=== PATIENT | male | born 1970 | race Caucasian/White ===

== ENCOUNTER 2016-12-02 08:12 | Emergency (ER) | payer BC ==
[2016-12-02 08:17] VITALS: BP 139/78; PULSE 96; RESP 20; TEMP 99.8
[2016-12-02] MEDS ORDERED: HYDROcodone/APAP 10-325MG 1 EACH TAB PO ONE (08:26)
--- NOTE | 2016-12-02 08:29 | ED ---
Lower Extremity Injury HPI - General Chief Complaint: Extremity Injury, Lower Stated Complaint: left knee injury Time Seen by Provider: 12/02/16 08:19 Source: patient, family, RN notes reviewed Mode of arrival: wheelchair Limitations: physical limitation - History of Present Illness Initial Comments: 46-year-old male presents emergency Department chief complaint left knee pain. Patient states that he injured his knee around midnight last night. Patient states that his brother fell onto his leg bending his knee. He states it happened so quick is unsure which way his knee really event. Patient states that he tried to bear some weight after his knee just gave out. He states that he feels there is no support to his left knee. He does complain of moderate swelling and discomfort with any movement of his left knee. Patient denies any previous injuries to his left knee with states that her prior left hip replacement because of chronic pain from that. Patient states the surgery was performed by [facility] physician. Patient denies any paresthesias of his left leg. Patient denies any pain below the knee or above the knee. - Related Data Allergies Allergy/AdvReac Type Severity Reaction Status Date / Time No Known Allergies Allergy Verified 12/02/16 08:17 Review of Systems ROS Statement: Those systems with pertinent positive or pertinent negative responses have been documented in the HPI. ROS Other: All systems not noted in ROS Statement are negative. Past Medical History Past Medical History: Hyperlipidemia, Hypertension Additional Past Medical History / Comment(s): umbilical hernia History of Any Multi-Drug Resistant Organisms: None Reported Past Surgical History: Adenoidectomy, Joint Replacement, Tonsillectomy Additional Past Surgical History / Comment(s): left hip replacement, sinus surgery, glass right eye Past Psychological History: No Psychological Hx Reported Smoking Status: Never smoker Past Alcohol Use History: Occasional Past Drug Use History: None Reported General Exam Limitations: physical limitation General appearance: alert, in no apparent distress Respiratory exam: Present: normal lung sounds bilaterally. Absent: respiratory distress, wheezes, rales, rhonchi, stridor Cardiovascular Exam: Present: regular rate, normal rhythm, normal heart sounds. Absent: systolic murmur, diastolic murmur, rubs, gallop, clicks Extremities exam: Present: other (Left knee there is a large amount of swelling noted, joint effusion, pedal pulses neurovascular intact patient has pain with anterior drawer tests and mild laxity noted no pain with valgus or varus patient has moderate discomfort with range of motion) Neurological exam: Present: alert, oriented X3, reflexes normal. Absent: motor sensory deficit Skin exam: Present: warm, dry, intact, normal color. Absent: rash Course Vital Signs 12/02/16 08:13 Temperature 99.8 F H Pulse Rate 96 Respiratory 20 Rate Blood Pressure 139/78 O2 Sat by Pulse 95 Oximetry Medical Decision Making - Medical Decision Making 46-year-old male present emergency department for left knee injury. Patient most likely has internal derangement. Patient has joint effusion noted. Patient was placed in knee immobilizer and he has crutches at home. He also states she has pain medication that he takes. Patient referred to on-call orthopedics return parameters were discussed. Disposition Clinical Impression: Injury of ligament of left knee, Left knee sprain Disposition: HOME SELF-CARE Condition: Stable Instructions: Knee Sprain (ED) Additional Instructions: Please return to the Emergency Department if symptoms worsen or any other concerns. Referrals: Fernando Espitia MD [Primary Care Provider] - 1-2 days Sixto Tillman MD [STAFF PHYSICIAN] - 1-2 days Time of Disposition: 09:14
--- NOTE | 2016-12-02 08:51 | XR ---
EXAMINATION TYPE: XR knee complete LT , 3 VIEWS DATE OF EXAM ORDERED: 12/02/2016 HISTORY: Pain. COMPARISON: None. FINDINGS: Joint spaces are well-maintained. There is no chondrocalcinosis. No acute fracture or disl ocation is seen. There is a small joint effusion. IMPRESSION: 1. NO ACUTE OSSEOUS LESION. 2. SMALL KNEE JOINT EFFUSION.
== END 2016-12-02 09:16 | disposition home or self-care (01) ==
LOC: EC 08:12
DX: S83.92XA Sprain of unspecified site of left knee, initial encounter (principal); Z96.642 Presence of left artificial hip joint; X50.1XXA Overexertion from prolonged static or awkward postures, initial encounter
CPT/HCPCS: 99283; 73562; L1830

== ENCOUNTER 2016-12-21 11:20 | Day surgery (SDC) | payer BC ==
[2016-12-17 13:16] VITALS: BMI 36.5
[~2016-12-21 11:20] MED LIST: DEXAMETHASONE SOD PHOSPHATE 10 MG/ML 1 ML VIAL IV ONE; HYDROmorphone 1 MG/ML 1 ML SYRINGE IVP PRN; LACTATED RINGERS 1,000 ML IV SCH; ONDANSETRON 4 MG/2 ML VIAL IVP ONE; Pre Op ABX Message 1 EACH MISC MISCELLANE ONE
[2016-12-21] MEDS ORDERED: LIDOCAINE 1% 20 ML VIAL (10MG/ML) FOR IV START IV ONE (12:03)
[2016-12-21] MEDS ORDERED: ROCURONIUM BROMIDE 10 MG/ML 10 ML VIAL IV ONE (12:58)
[2016-12-21] MEDS ORDERED: GLYCOPYRROLATE 0.2 MG/ML 2 ML VIAL ONE (12:58)
[2016-12-21] MEDS ORDERED: fentaNYL (PF) 50 MCG/ML 2 ML AMP ONE (12:58)
[2016-12-21] MEDS ORDERED: KETOROLAC 30 MG/ML 1 ML VIAL ONE (12:58)
[2016-12-21] MEDS ORDERED: MIDAZOLAM 2 MG/2 ML VIAL ONE (12:58)
[2016-12-21] MEDS ORDERED: LIDOCAINE 1% INJ 10MG/ML (20 ML MDV) ONE (12:58)
[2016-12-21] MEDS ORDERED: NEOSTIGMINE 1 MG/ML 10 ML VIAL ONE (12:58)
[2016-12-21] MEDS ORDERED: HYDROmorphone (PF) 1 MG/ML ONE (12:58)
[2016-12-21] MEDS ORDERED: SUCCINYLCHOLINE CHLORIDE 100 MG/5 ML SYR IV ONE (12:58)
[2016-12-21] MEDS ORDERED: PROPOFOL 10 MG/ML 20 ML VIAL IV ONE (12:58)
[2016-12-21] MEDS ORDERED: SODIUM CHLORIDE 0.9% 100 ML with ceFAZolin 2,000 MG IV ONE ×2 (13:10)
[2016-12-21] MEDS ORDERED: LACTATED RINGERS 1,000 ML IV ONE (13:28)
[2016-12-21 15:12] VITALS: TEMP 96.9
[2016-12-21] MEDS ORDERED: HYDROmorphone 1 MG/ML 1 ML SYRINGE IVP ONE ×2 (15:15→15:20)
[2016-12-21 15:45] VITALS: RESP 16
[2016-12-21] MEDS ORDERED: HYDROcodone/APAP 7.5-325MG 1 EACH TAB PO ONE (16:25)
[2016-12-21 16:53] VITALS: BP 143/66; PULSE 84
--- NOTE | 2016-12-21 17:47 | P.OP ---
Date of Procedure: 12/21/16 Preoperative Diagnosis: Postoperative Diagnosis: Procedure(s) Performed: left knee ACL recon allograft anterior tibialis GRAFTLINK Partial lateral meniscectomy 40% (large stellate radial tear anterior horn, body , posterior horn) OA PFJ grade II--chondroplasty PREOPERATIVE DIAGNOSES: 1. Left knee anterior cruciate ligament tear; 2. Posterior horn lateral meniscus tear, degenerative POSTOPERATIVE DIAGNOSES: 1. Left knee anterior cruciate ligament tear; 2. Posterior horn lateral meniscus tear, degenerative PROCEDURES PERFORMED: 1. Left knee arthroscopically-assisted anterior cruciate ligament reconstruction with soft tissue allograft 2. Left knee arthroscopic partial lateral meniscectomy 3. Left knee arthroscopic chondroplasty patellofemoral joint ANESTHESIA: knitting demonstrator: Sraah Hector PA-C (assistance with: patient positioning, retraction, graft prep, camera operation, reconstruction, irrigation, closure, dressing) COMPLICATIONS: None ESTIMATED BLOOD LOSS: Less than 20 cc TOURNIQUET: 75 minutes DISPOSITION: To post-anesthesia care unit INDICATIONS: Guillermo is a 46-year-old male with a history of left knee ACL tear and lateral meniscus tear. We have discussed different approaches to ACL reconstruction and the decision is for soft tissue allograft reconstruction with possible meniscal repair versus debridement. I have explained the details of this surgery thoroughly and also explained the potential risks and complications, including the relative risks of graft failure. Other risks are inclusive of, but not limited to: bleeding, infection, scarring, discomfort, blood vessel and nerve damage, stiffness, weakness, need for further surgery, failure to relieve symptoms, arthritis, persistence or worsening of problems, , and other risks. The patient and parents are aware of these risks and agree to proceed with surgery. The consent form has been signed. PROCEDURE: After appropriate consent was obtained, the patient was taken to the operating room and placed supine on the operating table. General anesthesia was initiated. The knee was examined under anesthesia. Medial collateral, lateral collateral and posterior cruciate ligaments were all intact. There was positive pivot shift of 2+ and 4mm anterior translation with both Yazmin and anterior drawer. Full range of motion was noted without crepitus. No effusion or soft tissue swelling was noted. Prepping and draping of the left knee was performed in the usual sterile fashion using ChloraPrep. Care was taken that all pressure points were adequately padded. Leg patterson and pneumotourniquet were used. Time-out was called according to [employer] standards, confirming patient identity, surgical procedure, side, and antibiotic administration. Graft preparation took place on the Arthrex graft preparation station. Measurement and preparation of the graft took place uneventfully. The graft was trimmed down to measure approximately 9-10 mm diameter and 68-72 mm length quadrupled graft. 3 loose type suture ligations were performed using #2 FiberWire to secure the graft. The graft was inserted onto the Arthrex ACL tightrope RT on one side, and the ABS sutures on the other. These devices were then attached to the adjustable sliding units on the prep station. The graft was then set to 20 pounds of tension on the graft prep board and covered with a sterile saline soaked gauze pad. During the preparation of the graft, arthroscopy commenced. The surgical portals were placed directly next to the patellar tendon medially and laterally. Camera and instruments were carefully inserted into the knee and arthroscopy was performed. The patellofemoral joint showed arthritis of the central facet of the patella, grade 2. This was addressed with debridement using a shaver.. No loose bodies in the medial or lateral gutters, quad tendon normal. No plica. Lateral compartment showed normal hyaline cartilage without defect. Meniscus showed a stellate tear involving the anterior horn, body, and posterior horn. This was not repairable. Approximately 40% of the meniscus was removed using a combination of shaver and basket forceps. No loose bodies were seen within the lateral compartment. Medial compartment was then examined. Medial hyaline cartilage of the femur and tibia were normal. Medial meniscus was also visualized and probed and found to be normal. The notch of the knee was then inspected. The patient had a complete tear of the ACL at the femoral attachment with a small Cyclops lesion. The remnant was debrided away with care to avoid injuring the PCL. The notch in this patient was somewhat narrow, and so it was expanded in the lateral direction with a angelina. Only 3 mm of bone was resected from the lateral portion of the notch, just enough to get the guide in.. The soft tissue on the lateral side of the notch was cleared as necessary using a shaver. Next, the femoral socket was created using the Arthrex flip cutter guide. The guide was adjusted through the anterolateral portal after careful measurement of the anterior to posterior condylar distance on the lateral notch. A spot approximately between 40 and 50% of this length was chosen and the guide was moved superiorly only as much as to allow for a 2.5 mm back wall. Incision was created on the lateral side of the thigh over the IT band and the guide was placed against the bone. Guide position was adjusted so that there was 20 of anterior elevation in the coronal plane of the femur and 60 in the sagittal plane. Drilling was then performed using the flip cutter drill pin into the knee at the appropriate location. Once the pin position was noted to be satisfactory, the guide was removed and the drill sleeve was tapped into the bone using a mallet. The flip cutter was then deployed and retro-drilling was performed to create a femoral socket of approximately 25 mm. Debris was suctioned out using a shaver. Passing suture was then inserted into the knee joint and carried out through the anteromedial portal. The tibial tunnel was created by the following steps. The retro-cutter aiming guide for the tunnel was placed into the anteromedial portal and onto the cleared central footprint of the [place] ACL. The guide cylinder was placed securely on the tibial cortex. The tibial bone length was measured. The retro- cutter guide pin was then inserted into the tibia to emerge at the mid- posterior aspect of the [place] ACL footprint, approximately 5 mm from the PCL and just anterior to the posterior border of the anterior horn of the lateral meniscus. The pin was noted to be in excellent position. The retro-cutter was then deployed and reverse drilling was performed creating a tibial socket approximately 30 mm in length. No fracture was noted. The intraarticular debris was removed using a shaver. Graft passing suture was placed. The femoral portion of the GraftLink construct was then inserted into the knee joint, guided by the passing suture. The Endobutton was carried through the femoral cortex and flipped, engaging the cortex securely. Approximately 10 mm or so of the graft was then placed into the femoral socket, using the sutures of the Endobutton. In similar fashion, the graft passing suture was placed into the loop and brought out through the tibial tunnel. This brought the tibial ABS sutures along with it. Approximately 15 mm of graft was placed within the tibial tunnel at which point the adjustable button for the tibia was placed on the sutures. The femoral portion of the graft was completely deployed at this point and bottomed out nicely. The adjustable button was confirmed to be on the cortex of the tibia without interposed soft tissue and preliminary tensioning was performed at that point in full extension. No graft impingement was noted. The knee was then taken through range of motion cycling 10 times. There was no significant motion of the graft detected and the femoral and tibial fixation was noted to be solid. Further tightening of the sutures was performed in extension from the tibial side and the knee was cycled 10 more times with final tightening of the sutures at that point. Sutures were then tied together over the button. Knee was then taken through range of motion which was noted to be full. No graft impingement was noted at the roof or sides of the notch. Fluid was removed from the knee and testing was performed. Anterior drawer 0 mm and Yazmin 0 mm. Negative pivot shift. Tourniquet was deflated. Hemostasis was obtained using cautery and pressure. Graft passing sutures were removed or cut as necessary. Thorough irrigation using antibiotic solution was performed, and portals were closed with 4-0 Monocryl suture. Tibial incision was closed with 4 -0 Monocryl for the skin. Steri strips were applied. Sterile dressing and light compressive dressing was applied using Webril and KIMO wrap. Knee immobilizer was applied. Patient tolerated the procedure well and taken to recovery room in stable condition. Sponge and needle counts were correct. Implants: Indications for Procedure: Operative Findings: Description of Procedure:
== END 2016-12-21 17:15 | disposition home or self-care (01) ==
LOC: OR 11:20
PROVIDERS: ATTEND Orthopaedic Surgery
DX: S83.512A Sprain of anterior cruciate ligament of left knee, initial encounter (principal); X58.XXXA Exposure to other specified factors, initial encounter; I10 Essential (primary) hypertension; E78.5 Hyperlipidemia, unspecified; Z79.891 Long term (current) use of opiate analgesic; Z79.1 Long term (current) use of non-steroidal anti-inflammatories (NSAID); Z79.84 Long term (current) use of oral hypoglycemic drugs
CPT/HCPCS: 29881; 29888; C1713 ×3; C1762; J2250; J1100; J2710; J2405; J2001; J3010; J1885; J1170; J0690; J0330; J2704

== ENCOUNTER → 2016-12-27 | Outpatient (CLI) | payer BC ==
--- NOTE | 2017-01-01 11:15 | US ---
EXAMINATION TYPE: US venous doppler duplex LE LT DATE OF EXAM: 12/27/2016 1:46 PM COMPARISON: NONE CLINICAL HISTORY: Left Knee Pain M25.562. SIDE PERFORMED: left TECHNIQUE: The lower extremity deep venous system is examined utilizing real time linear array sonog wil with graded compression, doppler sonography and color-flow sonography. VESSELS IMAGED: External Iliac Vein (EIV) Common Femoral Vein Deep Femoral Vein Greater Saphenous Vein * Femoral Vein Popliteal Vein Small Saphenous Vein * Proximal Calf Veins (* superficial vessels) Patient of large body habitus. Left Leg: Negative for DVT, GSV and PTV's also scanned per order. IMPRESSION: 1. No deep venous thrombosis within the deep venous system of the left lower extremity. 2. Additionally, greater saphenous vein was evaluated without evidence of thrombus within the visuali zed portions.
== END | disposition home or self-care (01) ==
LOC: RADUSWWP 13:01
PROVIDERS: ATTEND Orthopaedic Surgery
DX: S83.412A Sprain of medial collateral ligament of left knee, initial encounter (principal); I80.9 Phlebitis and thrombophlebitis of unspecified site; Z98.890 Other specified postprocedural states

== ENCOUNTER → 2017-04-25 | Outpatient (CLI) | payer BC ==
--- NOTE | 2017-04-25 14:58 | US ---
EXAMINATION TYPE: US venous doppler duplex LE LT DATE OF EXAM: 04/25/2017 2:24 PM COMPARISON: CLINICAL HISTORY: Left Leg Pain M25.562. left ACL surgery x 4 months ago. Knee pain. Had fluid dramandeep simon from posterior knee today at office. SIDE PERFORMED: Left TECHNIQUE: The lower extremity deep venous system is examined utilizing real time linear array sonog wil with graded compression, doppler sonography and color-flow sonography. VESSELS IMAGED: External Iliac Vein (EIV) Common Femoral Vein Deep Femoral Vein Greater Saphenous Vein * Femoral Vein Popliteal Vein Small Saphenous Vein * Proximal Calf Veins (* superficial vessels) Left Leg: Appears negative for DVT IMPRESSION: 1. Left lower extremity negative for deep venous thrombosis by ultrasound.
== END ==
LOC: RADUSWWP 14:06
PROVIDERS: ATTEND Orthopaedic Surgery
DX: S83.412D Sprain of medial collateral ligament of left knee, subsequent encounter (principal); S83.512D Sprain of anterior cruciate ligament of left knee, subsequent encounter; S83.282D Other tear of lateral meniscus, current injury, left knee, subsequent encounter; I80.9 Phlebitis and thrombophlebitis of unspecified site

== ENCOUNTER 2019-06-29 13:30 | Emergency (ER) | payer BC, OTHER ==
[2019-06-29 13:37] VITALS: BP 171/102; PULSE 61; RESP 18; TEMP 97.6
[2019-06-29] MEDS ORDERED: LIDOCAINE 1% INJ 10MG/ML (20 ML MDV) SQ ONE (14:08)
--- NOTE | 2019-06-29 14:32 | XR ---
EXAMINATION TYPE: XR finger RT DATE OF EXAM: 06/29/2019 COMPARISON: NONE HISTORY: Laceration injury with pain. TECHNIQUE: 3 views right second finger are acquired. FINDINGS: No acute fracture or dislocation is seen second finger right hand. Joint spaces are preserv ed. Linear lucency suspicious for laceration along the radial distal aspect of the second proximal ph alanx without obvious suspicious or significant radiodense foreign body. IMPRESSION: As above.
--- NOTE | 2019-06-29 15:06 | ED ---
General Adult HPI - General Chief complaint: Wound/Laceration Stated complaint: right index finger laceration-[facility] Time Seen by Provider: 06/29/19 13:39 Source: patient, RN notes reviewed Mode of arrival: ambulatory Limitations: no limitations - History of Present Illness Initial comments: 49-year-old male with a past medical history of hypertension, hyperlipidemia presents to the emergency department for a chief complete of laceration. Patient has a laceration noted to the right second digit. Patient states he was using a grinding tool at work when he cut his finger. States it would not stop bleeding at first we presented to the emergency department. Denies any difficulty bending his finger. Denies any loss of sensation. Denies any other injuries. Patient states his tetanus is up-to-date in the last 5 years. Patient denies blood thinner usage.Patient has no other complaints at this time including shortness of breath, chest pain, abdominal pain, nausea or vomiting, headache, or visual changes. - Related Data Home Medications Medication Instructions Recorded Confirmed Allopurinol(Unknown Dose) 1 tab PO QAM 12/17/16 12/21/16 Prilosec(Unknown Dose) 1 tab PO DAILY PRN 12/17/16 12/21/16 Zestoretic (Unknown Dose) 1 tab PO QAM 12/17/16 12/21/16 Zocor(Unknown Dose) 1 tab PO QAM 12/17/16 12/21/16 Previous Rx's Medication Instructions Recorded HYDROcodone/APAP 7.5-325MG [Oxly 1 - 2 tab PO Q4-6H PRN #90 tab 12/21/16 7.5-325] Sennosides-Docusate Sodium 1 tab PO BID #60 tablet 12/21/16 [Senokot-S] Cephalexin [Keflex] 500 mg PO Q6HR 7 Days #28 cap 06/29/19 Allergies Allergy/AdvReac Type Severity Reaction Status Date / Time No Known Allergies Allergy Verified 12/17/16 12:56 Review of Systems ROS Statement: Those systems with pertinent positive or pertinent negative responses have been documented in the HPI. ROS Other: All systems not noted in ROS Statement are negative. Past Medical History Past Medical History: Hyperlipidemia, Hypertension, Osteoarthritis (OA) Additional Past Medical History / Comment(s): umbilical hernia History of Any Multi-Drug Resistant Organisms: None Reported Past Surgical History: Adenoidectomy, Joint Replacement, Tonsillectomy Additional Past Surgical History / Comment(s): left hip replacement, sinus surgery, glass right eye Past Anesthesia/Blood Transfusion Reactions: No Reported Reaction Past Psychological History: No Psychological Hx Reported Smoking Status: Never smoker Past Alcohol Use History: Occasional Past Drug Use History: None Reported - Past Family History Mother Family Medical History: No Reported History General Exam Limitations: no limitations General appearance: alert, in no apparent distress Head exam: Present: atraumatic, normocephalic, normal inspection Eye exam: Present: normal appearance, PERRL, EOMI. Absent: scleral icterus, conjunctival injection, periorbital swelling ENT exam: Present: normal exam, mucous membranes moist Neck exam: Present: normal inspection, full ROM. Absent: tenderness, meningismus, lymphadenopathy Respiratory exam: Present: normal lung sounds bilaterally. Absent: respiratory distress, wheezes, rales, rhonchi, stridor Cardiovascular Exam: Present: regular rate Extremities exam: Present: full ROM (Full range of motion of the right second digit including the MCP, PIP, and DIP joint.), tenderness, normal capillary refill (cap refill less than 2 seconds in the right second digit. Radial pulses 2+.), other (Patient has a 2 cm laceration noted along the DIP joint of the right second digit, radial aspect. I do believe there is a partial tendon injury.). Absent: pedal edema, joint swelling, calf tenderness Course Vital Signs 06/29/19 13:34 Temperature 97.6 F Pulse Rate 61 Respiratory 18 Rate Blood Pressure 171/102 O2 Sat by Pulse 98 Oximetry Procedures - Laceration Laceration #1 Consent Obtained: verbal consent Indication: laceration Site: hand Size (cm): 2 Description: linear Depth: involves tendon Anesthetic Used: lidocaine 1% Anesthesia Technique: local infiltration Amount (mls): 3 Pre-repair: wound explored, irrigated extensively (With saline pressure irrigation), foreign body removed (I did remove a small amount of debris from the wound) Type of Sutures: other (Ethilon) Size of Sutures: 5-0 Number of Sutures: 4 Technique: simple, interrupted Patient Tolerated Procedure: well, no complications Medical Decision Making - Medical Decision Making Patient is a 2 cm laceration noted along the right second digit PIP joint. I do believe I see partial tendon rupture. Therefore wound was irrigated thoroughly with saline pressure irrigation. X-ray was obtained which showed no acute fracture or dislocation. Linear lucency suspicious for laceration along the radial aspect of the second proximal phalanx without obvious suspicious or significant radiodense foreign body. Wound was reapproximated with 4 simple rapid sutures. Patient was given Keflex. He was splinted in a finger splint. He was given orthopedic referral. I discussed return parameters including signs of infection such as spreading or streaking redness, drainage, fever or a significant amount of pain with flexion of the digit. He will return for any worsening symptoms. Disposition Clinical Impression: Laceration Disposition: HOME SELF-CARE Condition: Good Instructions (If sedation given, give patient instructions): Laceration (ED), Care For Your Stitches (ED) Additional Instructions: Please take antibiotic as directed. Please keep splint in place. Monitor for signs of infection such as spreading or streaking redness, drainage, fever or significant pain with bending the finger and return if these occur. Otherwise follow-up with orthopedics in one to 2 days given possible partial tendon laceration. Prescriptions: Cephalexin [Keflex] 500 mg PO Q6HR 7 Days #28 cap Is patient prescribed a controlled substance at d/c from ED?: No Referrals: Fernando Espitia MD [Primary Care Provider] - 1-2 days Liu Irvin MD [Medical Doctor] - 1-2 days Time of Disposition: 15:04
[2019-06-29] MEDS ORDERED: CEPHALEXIN 500MG STARTER PACK 4 CAP BTL PO STA (15:15)
== END 2019-06-29 15:19 | disposition home or self-care (01) ==
LOC: EC 13:30
DX: S61.221A Laceration with foreign body of left index finger without damage to nail, initial encounter (principal); I10 Essential (primary) hypertension; E78.5 Hyperlipidemia, unspecified; M19.90 Unspecified osteoarthritis, unspecified site; Z96.642 Presence of left artificial hip joint; Z79.899 Other long term (current) drug therapy; W27.8XXA Contact with other nonpowered hand tool, initial encounter; Y93.89 Activity, other specified; Y92.69 Other specified industrial and construction area as the place of occurrence of the external cause; Y99.0 Civilian activity done for income or pay
CPT/HCPCS: 73140; 99283; 12041; J2001

== ENCOUNTER → 2020-05-09 | Outpatient (CLI) | payer BC | END | disposition home or self-care (01) | LOC: LABWHC1 08:57 | PROVIDERS: ATTEND Nurse Practitioner Adult Health | DX: R05 Cough (principal); R50.9 Fever, unspecified | CPT/HCPCS: U0003; C9803; U0005 ==

== ENCOUNTER → 2020-05-26 | Outpatient (CLI) | payer BC | END | disposition home or self-care (01) | LOC: LABWHC1 14:10 | PROVIDERS: ATTEND Internal Medicine | DX: R05 Cough (principal); R06.02 Shortness of breath | CPT/HCPCS: U0003; C9803; U0005 ==

== ENCOUNTER → 2021-04-26 | Outpatient (CLI) | payer BC | END | disposition home or self-care (01) | LOC: LABWHC1 11:08 | PROVIDERS: ATTEND Internal Medicine | DX: Z20.822 Contact with and (suspected) exposure to COVID-19 (principal) | CPT/HCPCS: 87502; 87634; U0003; C9803 ==

== ENCOUNTER → 2023-01-02 | Outpatient (CLI) | payer BC ==
--- NOTE | 2023-01-02 18:43 | CA ---
Stress Echo Report Justo Brewster Age: 52 Gender: M : 1970 Exam Date: 01/02/2023 09:22 Exam Location: [facility] Ht (in): 67 Wt (lb): 240 Ordering Physician: Andriy Russ MD Referring Physician: andriy russ,, Loaders: Nora Hogan [facility] Techn[employer] Procedure CPT: Indication: R07.89 other chest pain ICD-9 Codes: Rhythm: Patient History: Chest Pain Cardiac Medications: Medications in past 24 hours: Contrast: Stress Results Protocol: Avel Total dose(mL): Exercise Duration (min:sec): 9:[address] Depression (mm): Angina Score: Wu Score: METS: 11.1 Resting HR: 92 Resting BP: 125 / 89 Peak HR: 165 Peak BP: 208 / 76 Max Predicted HR: 167 99 % Max Predicted HR Target HR: 142 Double Product: [id number] Stress Summary: BP Response: Reason for Termination: Reached target heart rate or work-load Cardiac Symptoms: No Symptoms ECG Analysis Resting ECG: Normal sinus rhythm, heart rate 83 beats. Stress ECG: No significant ST-T wave changes diagnostic for ischemia by ST segment analysis Arrhythmia: There were no sustained arrhythmias or ectopic beats Echo Analysis Resting Echo: No obvious regional wall motion abnormality on resting echocardiogram Peak Echo Analysis: Normal augmentation of global and segmental systolic function. No obvious wall motion abnormality with peak stress. No echocardiographic evidence of ischemia. MEASUREMENTS (Male/Female) Normal Values CONCLUSIONS Good excess tolerance of patient's age achieving 11.1 METS Normal hemodynamic and clinical response to exercise Nonischemic ECG response to exercise Nonischemic echocardiogram response to exercise Normal treadmill stress echocardiogram Dr Amandeep Grullon (Electronically Signed) Final Date: 02 January 2023 18:42
== END | disposition home or self-care (01) ==
LOC: RADNMMAIN 08:54
PROVIDERS: ATTEND Internal Medicine
DX: R07.89 Other chest pain (principal)
CPT/HCPCS: 93351

== ENCOUNTER → 2024-02-06 | Outpatient (CLI) | payer BC ==
--- NOTE | 2024-02-06 15:28 | CT ---
EXAMINATION TYPE: CT abdomen pelvis wo con CT DLP: 1090.7 mGycm, Automated exposure control for dose reduction was used. DATE OF EXAM: 02/06/2024 8:38 AM COMPARISON: CT abdomen pelvis 03/02/2014. CLINICAL INDICATION:Male, 53 years old with history of R10.9 UNSPECIFIED ABDOMINAL PAIN; Lt flank vy n TECHNIQUE: Standard CT of the abdomen and pelvis without IV or oral contrast. Lack of IV or oral co ntrast limits evaluation of solid and hollow organ viscera. Coronal and sagittal reformats were perfo rmed. FINDINGS: LOWER CHEST: Calcified granuloma within the left lower lobe. Right lower lobe 6 mm pulmonary nodule ( series 4, image 15). Not definitively appreciated on prior exam. ABDOMEN LIVER: Unremarkable noncontrast appearance GALLBLADDER AND BILE DUCTS: Unremarkable. PANCREAS: Unremarkable noncontrast appearance SPLEEN: Unremarkable noncontrast appearance ADRENAL GLANDS: Right adrenal gland appears unremarkable. Left adrenal gland nodule measuring 1.8 cm which is new from prior exam. Demonstrated a Hounsfield unit of 46. KIDNEYS AND URETERS: No evidence of hydronephrosis or renal calculus. Exophytic right mid kidney 2.5 cm cyst. Left mid kidney cortical 2.1 cm hypodense lesion with fluid attenuation favored to represent a cyst. Large peripherally calcified lesion emanating from the posterior superior aspect of the left kidney measuring grossly 11.3 x 10.8 x 10.4 cm and PV, AP, CC dimensions. Previously it measured 5.0 x 5.8 x 5.8 cm 2014 exam. There is some internal hyperdensity identified suggesting possible mural n odule (series 3, image 66). Previously demonstrated thick rim. PELVIS BLADDER: Poorly evaluated due to streak artifact from hip prosthesis. REPRODUCTIVE: Poorly evaluated due to streak artifact from hip prosthesis. ABDOMEN & PELVIS STOMACH AND BOWEL: Stomach and duodenum are unremarkable. Scattered distal colonic diverticula withou t evidence for acute diverticulitis. The appendix is within normal limits. No focal bowel wall thicke armand or surrounding inflammatory changes. No evidence of bowel obstruction. PERITONEUM/RETROPERITONEUM: No evidence of pneumoperitoneum or free fluid. Periaortic and bilateral i liac chain patchy stranding changes identified. New from prior exam. VASCULATURE: No evidence of aortic aneurysm. MUSCULOSKELETAL: No acute osseous abnormalities. Postsurgical changes from bilateral hip arthroplasty . LYMPH NODES: Paraesophageal enlarged lymph node measuring 1.1 cm (series 3, image 37). Enlarged gastr ohepatic ligament lymph node measuring 1.7 cm short axis (series 3, image 41), enlarged periportal ly mph node measuring 1.3 cm short axis (series 3, image 52). Additional multiple enlarged periaortic ly mph nodes with example including a left pericolic lymph node measuring up to 1.9 cm (series 3, image 75). Enlarged right external iliac chain lymph node measuring 1.2 cm short axis (series 3, image 121) . Additional enlarged left external iliac chain lymph node measuring 1.0 cm short axis (series 3, énstor ge 124). SOFT TISSUE/ABDOMINAL WALL: Unremarkable IMPRESSION: 1. Increased size of complex left renal cystic lesion with peripheral calcification and suggested po ssible mural nodule. Measures up to 11.3 cm, previously 5.8 cm on 2014 exam. Highly concerning for re nal cell carcinoma until proven otherwise. Further evaluation with CT or MR abdomen renal mass protoc ol is recommended. Urology consultation is recommended. 2. Pathologically enlarged paraesophageal, para-aortic, lalo hepatis, and iliac chain lymphadenopat hy concerning for metastasis and to provide otherwise. 3. Development of left adrenal gland nodularity concerning for metastasis. 4. Colonic diverticulosis without evidence for acute diverticulitis. [facility], , 02/06/2024 3:26 PM
== END | disposition home or self-care (01) ==
LOC: RADCTMAIN 08:19
PROVIDERS: ATTEND Internal Medicine
DX: R10.9 Unspecified abdominal pain
CPT/HCPCS: 74176

== ENCOUNTER → 2024-02-10 | Outpatient (CLI) | payer BC ==
--- NOTE | 2024-02-13 09:18 | MR ---
EXAMINATION TYPE: MR kidney wo/w con DATE OF EXAM: 02/10/2024 10:13 PM CLINICAL INDICATION: Male, 53 years old with history of N28.89 OTHER SPECIFIED DISORDERS OF KIDNEY AN D URE; PHH, Renal mass left COMPARISON: CT scan abdomen from 02/06/2024, 03/02/2014 TECHNIQUE: Multiplanar multi-sequence imaging was performed without contrast. Post contrast imaging was performed. Post IV contrast subtraction images were also submitted for review. IV Contrast: 10 cc Gadavist FINDINGS: LOWER CHEST: No gross irregularity. ABDOMEN Liver: No evidence for hepatic steatosis or cirrhosis. Gallbladder and Bile ducts: No evidence for ductal dilation, or biliary stricture or evidence of chol edocholithiasis. The gallbladder is within normal limits. Pancreas: No ductal dilation. No evidence for solid mass. Spleen: Normal for size. Adrenal glands: Unremarkable. Kidneys: High T2 low T1 signal right renal cyst measuring 20 mm. Left renal lesion which is large jeremie suring up to 12.0 x 10.8 cm with peripheral low T2 signal and central high T1 signal. Postcontrast im aging demonstrates thin capsule of enhancement. Some mild enhancement along the most anterior portion best appreciated on subtraction imaging. Additional simple appearing left renal cyst. No evidence fo r hydronephrosis. Stomach and Bowel: No evidence for bowel wall thickening or evidence for obstruction. Retroperitoneum/Peritoneum: No evidence of pneumoperitoneum or free fluid. Vasculature: No aortic aneurysm. Musculoskeletal: The osseous structures appear intact. Lymph Nodes: Conglomerate Retroperitoneal lymph nodes are seen extending along the aorta done towards the pelvis. Abdominal wall: Unremarkable. IMPRESSION: 1. Left renal lesion with intrinsic high T1 signal suggesting proteinaceous/hemorrhagic contents. Mu ral soft tissue with enhancement is also present and is concerning for malignancy especially in the s etting of retroperitoneal lymphadenopathy which is new from 2013. Further workup recommended. Tissue sampling recommended. 2. Simple appearing right renal cyst. [facility], , 02/13/2024 9:16 AM
== END | disposition home or self-care (01) ==
LOC: RADMRIMAIN 20:30
PROVIDERS: ATTEND Internal Medicine
DX: N28.89 Other specified disorders of kidney and ureter
CPT/HCPCS: 74183

== ENCOUNTER → 2024-02-18 | Outpatient (CLI) | payer BC ==
[2024-02-18 15:29] LABS: African American GFR (CKD) >90 (>60 ml/min/1.73 sqM); Blood Urea Nitrogen 17 mg/dL (9-20); Non-African American GFR(CKD) >90 (>60 ml/min/1.73 sqM)
--- NOTE | 2024-02-18 21:26 | CT ---
EXAMINATION TYPE: CT ChestAbdPelvis wo/w con CT DLP: 3328.1 mGycm, Automated exposure control for dose reduction was used. DATE OF EXAM: 02/18/2024 4:53 PM COMPARISON: 02/06/2024 , MRI abdomen 02/10/2024 CLINICAL INDICATION: Male, 53 years old with history of D41.02 Left kidney cancer; PHH, kidney ca Technique: CT ChestAbdPelvis wo/w con; Multiple axial images were obtained. Two-dimensional coronal a nd sagittal reconstructions were obtained. Contrast used:100 mL of Isovue 370 without and with IV Contrast, (None if empty) Oral contrast used: with Oral Contrast Findings: CHEST: LUNGS/ PLEURA: No focal consolidation, pneumothorax or right pleural effusion. Trace left pleural eff usion. Mild centrilobular emphysema changes seen throughout the lungs. Left lower lung calcified gran uloma. AIRWAY: Patent and unremarkable. HEART: Size within normal limits. MEDIASTINUM: No gross evidence of adenopathy. Paraesophageal lymph nodes including near the subcarina l region 10 R measuring 11 mm short axis series 3 image 20 right paratracheal measuring 13 mm in shor t axis. VASCULATURE: No aortic aneurysm. MUSCULOSKELETAL: No acute osseous abnormalities. SOFT TISSUES/LYMPH NODES: Right low neck lymph node measuring 14 mm in short axis series 3 image 17, left low neck enlarged lymph node measuring 14 mm short axis series 3 image 9 non the [id number] o n prior abdomen and pelvis exam. LOWER NECK: No significant findings. ABDOMEN LIVER: Unremarkable noncontrast appearance GALLBLADDER AND BILE DUCTS: Unremarkable. PANCREAS: Unremarkable noncontrast appearance SPLEEN: Unremarkable noncontrast appearance ADRENAL GLANDS: Right adrenal gland appears unremarkable. Left adrenal gland somewhat diffuse thickening measuring 43 Hounsfield units KIDNEYS AND URETERS: * No evidence of hydronephrosis or renal calculus. * Exophytic right mid kidney 2.5 cm cyst. * Left mid kidney cortical 2.1 cm hypodense lesion with fluid attenuation favored to represent a cys t. * Large peripherally calcified lesion emanating from the posterior superior aspect of the left kidne y measuring grossly 11.3 x 10.8 x 10.4 cm similar. Previously it measured 5.0 x 5.8 x 5.8 cm 2014 exa m. There is some internal hyperdensity identified suggesting possible mural nodule. PELVIS BLADDER: Poorly evaluated due to streak artifact from hip prosthesis. REPRODUCTIVE: Poorly evaluated due to streak artifact from hip prosthesis. ABDOMEN & PELVIS STOMACH AND BOWEL: Stomach and duodenum are unremarkable. Scattered distal colonic diverticula withou t evidence for acute diverticulitis. The appendix is within normal limits. No focal bowel wall thicke armand or surrounding inflammatory changes. No evidence of bowel obstruction. PERITONEUM/RETROPERITONEUM: No evidence of pneumoperitoneum or free fluid. Periaortic and bilateral i liac chain patchy stranding changes identified. New from prior exam. VASCULATURE: No evidence of aortic aneurysm. MUSCULOSKELETAL: No acute osseous abnormalities. Postsurgical changes from bilateral hip arthroplasty . LYMPH NODES: Paraesophageal enlarged lymph node measuring 1.1 cm (series 3, image 37). Enlarged gastrohepatic ligament lymph node measuring 17 mm short axis is stable. periportal lymph node measuring 13 mm in short axis is stable. multiple enlarged periaortic lymph nodes with example including a left pericolic lymph node measuring up to 19 mm in short axis is stable. Enlarged right external iliac chain lymph node measuring 12 mm short axis is stable Left external iliac chain lymph node measuring 10 mm in short axis is stable. SOFT TISSUE/ABDOMINAL WALL: Unremarkable IMPRESSION: 1. Similar size of complex left renal cystic lesion with peripheral calcification and with possible mural nodule. Measures up to 11.3 cm, previously 5.8 cm on 2014 exam. Highly concerning for renal alva l carcinoma until proven otherwise. Further evaluation with CT or MR abdomen renal mass protocol is r ecommended. 2. Lymph nodes throughout the mediastinum and low neck as well as enlarged paraesophageal, para-aort ic, lalo hepatis, and iliac chain lymphadenopathy concerning for metastasis and to provide otherwise . 3. Development of left adrenal gland nodularity concerning for metastasis. 4. Colonic diverticulosis without evidence for acute diverticulitis. [facility], , 02/18/2024 9:24 PM
== END | disposition home or self-care (01) ==
LOC: RADCTMAIN 14:51
PROVIDERS: ATTEND Urology
CPT/HCPCS: 36415; 71270; 74178; 82565; 84520

== ENCOUNTER → 2024-04-16 | Outpatient (CLI) | payer BC | END | disposition home or self-care (01) | LOC: RADPETMAIN 07:18 | PROVIDERS: ATTEND Internal Medicine | DX: Z53.9 Procedure and treatment not carried out, unspecified reason (principal) ==

== ENCOUNTER → 2024-04-23 | Outpatient (CLI) | payer BC ==
--- NOTE | 2024-04-23 10:42 | PE ---
EXAMINATION TYPE: PET CT fusion skull to thigh DATE OF EXAM: 04/23/2024 CLINICAL INDICATION:Male, 54 years old with history of C64.2 Renal Cancer; TECHNIQUE: Following the intravenous administration of 10.01 mCi of F-18 FDG, whole body images are performed from the skull base to the midthigh. Images are reviewed on the computer in the coronal, axial, and sagittal planes. Reconstructed rotating images are created on independent workstation and reviewed on the computer. A non-contrast CT is performed in conjunction with the PET scan. Glucose level 133 mg/dL CT DLP: 883 mGycm, Automated exposure control for dose reduction was used. COMPARISON: CT 02/18/2024, PET/CT None, MRI: None FINDINGS: Mediastinal SUV mean is 1.8. Hepatic parenchyma SUV mean is 2.5. SKULL BASE AND NECK: Suspicious uptake identified examples include: * Left supraclavicular lymph nodes, largest max SUV 8.7 measuring 15 mm in short axis, previously 12 mm. CHEST, MEDIASTINUM, AND HILAR REGION: Suspicious uptake identified examples include: * Right paratracheal measuring 11 mm in short axis max SUV 29. * Bilateral paraesophageal max SUV 7.5 measuring up to 6 mm in left and 6 mm on the right. ABDOMEN AND PELVIS: Suspicious uptake identified examples include: * Gastroesophageal ligament versus distal paraesophageal lymph node measuring 11 mm Max SUV 9.7 Conglomerate lymphadenopathy throughout the retroperitoneum. * On the left Max SUV 12.8 with ill-defined soft tissue measuring at least 34 x 37 mm previously 31 x 23 mm. * Lymphadenopathy extend down into the pelvis along the common iliac and external iliac chains. Righ t external iliac chain max SUV 6.0 on the right and on the left 6.7. Measuring 18 mm on the right, pr eviously 14 millimeters and on the left measuring up to 14 mm previously 12 mm. * The left kidney is surgically absent with fluid collection in the surgical bed FDG avid lymph node s in soft tissue seen throughout the fossa with FDG avid tissue extending into the left neural forame n of T12-L1. * Poor visualization of the left adrenal gland due to extensive Fat stranding soft tissue attenuatio n throughout the abdomen around the left upper quadrant near the area of expected adrenal gland MUSCULOSKELETAL STRUCTURES: * No suspicious radiotracer activity. * Reactive uptake around the left hip likely physiologic. * Uptake near the T12-L1 left neural foramen max SUV 9.7. OTHER CT: Multinodular thyroid gland bilaterally. Posttraumatic/procedural changes right globe. Mild coronary a rtery atherosclerosis. Small volume ascites throughout the abdomen. Fat-containing umbilical hernia w ith calcified granuloma. Scattered colonic diverticula. Bilateral hip arthroplasty changes. Hardware appears intact. IMPRESSION: 1. Surgically absent left kidney with Scattered FDG avid lymph nodes involving the left neck, medias tinum and throughout the abdomen and pelvis. Findings compatible with metastatic disease. Lymph nodes have increased in size in the retroperitoneum, left neck and left external iliac locations. [facility], , 04/23/2024 10:40 AM
== END | disposition home or self-care (01) ==
LOC: RADPETMAIN 07:47
PROVIDERS: ATTEND Internal Medicine Hematology & Oncology
DX: C64.2 Malignant neoplasm of left kidney, except renal pelvis (principal); Z90.5 Acquired absence of kidney; I25.10 Atherosclerotic heart disease of native coronary artery without angina pectoris; K42.9 Umbilical hernia without obstruction or gangrene
CPT/HCPCS: 78815; A9552